=== PATIENT | male | born 1930 | race Caucasian/White ===

== ENCOUNTER → 2017-01-27 | Outpatient (CLI) | payer MEDICARE ==
[2017-01-27 08:58] LABS: % SAT IRON 18 % (15-34); IRON,SERUM 73 ug/dL (65-175)
[2017-01-27 09:13] LABS: ALBUMIN 4.3 g/dL (3.4-5.0); BASO % 1 % (0-3); CREATININE 2.3 mg/dL (0.7-1.3); EOS % 6 % (0-3); GFR 27.2; HEMATOCRIT 35.4 % (39.0-53.0); HEMOGLOBIN 12.7 g/dL (13.0-17.5); LYMPH # 0.9 x10^3/uL (1.0-4.8); LYMPH % 18 % (24-48); MAGNESIUM 1.8 mg/dL (1.8-2.4); MEAN CORPUSCULAR HEMOGLOBIN 32 pg (25-35); MEAN CORPUSCULAR HGB CONC 36 g/dL (31-37); MEAN CORPUSCULAR VOLUME 90 fL (79-100); MONO % 18 % (0-9); NEUT % 57 % (31-73); PHOSPHORUS 4.7 mg/dL (2.6-4.7); PLATELET COUNT 193 x10^3/uL (140-400); POTASSIUM 4.5 mmol/L (3.5-5.1); RED BLOOD COUNT 3.95 x10^6/uL (4.30-5.70); RED CELL DISTRIBUTION WIDTH 14.1 % (11.5-14.5); WHITE BLOOD COUNT 5.1 x10^3/uL (4.0-11.0)
[2017-01-27 11:51] LABS: % EOS 6 % (0-5); PLT ESTIMATE ADEQUATE (ADEQUATE)
[2017-01-27 17:18] LABS: UR PROTEIN RD 58.9 mg/dL (Not Estab.)
[2017-01-27 19:13] LABS: PTH INTACT 44 pg/mL (15-65)
== END | disposition home or self-care (01) ==
LOC: LAB 07:58
PROVIDERS: ATTEND Nurse Practitioner Family
DX: I12.9 Hypertensive chronic kidney disease with stage 1 through stage 4 chronic kidney disease, or unspecified chronic kidney disease (principal); N18.3 Chronic kidney disease, stage 3 (moderate); E11.21 Type 2 diabetes mellitus with diabetic nephropathy; D64.9 Anemia, unspecified; R80.9 Proteinuria, unspecified; Z68.26 Body mass index [BMI] 26.0-26.9, adult
CPT/HCPCS: 36415; 80069; 82043; 82570; 82728; 83540; 83550; 83735; 83970; 84156; 85007; 85027

== ENCOUNTER → 2017-02-26 | Outpatient (CLI) | payer BC ==
[2017-02-26 08:44] LABS: CREATININE 2.1 mg/dL (0.7-1.3); GFR 30.2; POTASSIUM 4.5 mmol/L (3.5-5.1)
== END | disposition home or self-care (01) ==
LOC: LAB 08:07
PROVIDERS: ATTEND Internal Medicine Nephrology
DX: N18.3 Chronic kidney disease, stage 3 (moderate) (principal); Z68.26 Body mass index [BMI] 26.0-26.9, adult
CPT/HCPCS: 36415; 82565; 84132; 84520

== ENCOUNTER → 2017-11-27 | Outpatient (CLI) | payer BC ==
[2017-11-27 08:05] LABS: HEMATOCRIT 37.3 % (39.0-53.0); HEMOGLOBIN 12.9 g/dL (13.0-17.5); MEAN CORPUSCULAR HGB CONC 35 g/dL (31-37)
[2017-11-27 08:25] LABS: % SAT IRON 20 % (15-34); IRON,SERUM 69 ug/dL (65-175)
[2017-11-27 08:40] LABS: ALBUMIN 3.8 g/dL (3.4-5.0); ANION GAP 7 (6-14); BLOOD UREA NITROGEN 48 mg/dL (8-26); CALCIUM 10.6 mg/dL (8.5-10.1); CARBON DIOXIDE 26 mmol/L (21-32); CHLORIDE 104 mmol/L (98-107); CREATININE 2.6 mg/dL (0.7-1.3); FERRITIN 328 ng/mL (26-388); GFR 23.5; GLUCOSE 108 mg/dL (70-99); PHOSPHORUS 4.6 mg/dL (2.6-4.7); POTASSIUM 4.6 mmol/L (3.5-5.1); SODIUM 137 mmol/L (136-145); URIC ACID 8.1 mg/dL (3.5-7.2)
[2017-11-27 11:45] LABS: BILIRUBIN,URINE NEGATIVE (NEG); CLARITY,URINE CLEAR; COLOR,URINE YELLOW; GLUCOSE,URINE NEGATIVE (NEG); NITRITE,URINE NEGATIVE (NEG); PH,URINE 6.5; PROTEIN,URINE 100 mg/dL (NEG-TRACE); UROBILINOGEN,URINE 0.2 mg/dL (0.2 mg/dL)
[2017-11-27 12:19] LABS: BACTERIA,URINE 0 /HPF (0-FEW); HYALINE CASTS, URINE FEW /HPF; RBC,URINE 0 /HPF (0-2); WBC,URINE 0 /HPF (0-4)
[2017-11-27 13:23] LABS: CALCIUM PTH 10.4 mg/dL (8.6-10.2); CREATININE PTH 2.28 mg/dL (0.76-1.27); PHOSPHORUS PTH 4.3 mg/dL (2.5-4.5); PTH INTACT 18 pg/mL (15-65); eGFR AFRICAN-AMER 29 (>59); eGFR NON AFRICAN-AMER 25 (>59)
[2017-11-28 11:13] LABS: TOTAL PROTEIN CREATININE RATIO 2213 mg/g creat (0-200); UR CREATININE RD 49.7 mg/dL (Not Estab.)
== END | disposition home or self-care (01) ==
LOC: LAB 07:30
DX: I12.9 Hypertensive chronic kidney disease with stage 1 through stage 4 chronic kidney disease, or unspecified chronic kidney disease (principal); N18.4 Chronic kidney disease, stage 4 (severe); E11.21 Type 2 diabetes mellitus with diabetic nephropathy; E11.22 Type 2 diabetes mellitus with diabetic chronic kidney disease; I70.1 Atherosclerosis of renal artery; D50.9 Iron deficiency anemia, unspecified; N27.0 Small kidney, unilateral; R80.9 Proteinuria, unspecified; Z68.26 Body mass index [BMI] 26.0-26.9, adult
CPT/HCPCS: 36415; 80069; 81001; 82570; 82728; 83540; 83550; 83735; 83970; 84156; 84550; 85014; 85018

== ENCOUNTER → 2018-03-02 | Outpatient (CLI) | payer BC ==
[2018-03-02 14:42] LABS: ADD MAN DIFF? NO
[2018-03-02 14:56] LABS: BASO # 0.1 x10^3/uL (0.0-0.2); BASO % 1 % (0-3); EOS # 0.5 x10^3/uL (0.0-0.7); EOS % 7 % (0-3); HEMATOCRIT 30.7 % (39.0-53.0); HEMOGLOBIN 10.8 g/dL (13.0-17.5); LYMPH # 0.6 x10^3/uL (1.0-4.8); LYMPH % 9 % (24-48); MEAN CORPUSCULAR HEMOGLOBIN 33 pg (25-35); MEAN CORPUSCULAR HGB CONC 35 g/dL (31-37); MEAN CORPUSCULAR VOLUME 92 fL (79-100); MONO # 0.8 x10^3/uL (0.0-1.1); MONO % 12 % (0-9); NEUT # 4.9 x10^3uL (1.8-7.7); NEUT % 71 % (31-73); PLATELET COUNT 227 x10^3/uL (140-400); RED BLOOD COUNT 3.33 x10^6/uL (4.30-5.70); RED CELL DISTRIBUTION WIDTH 13.5 % (11.5-14.5); WHITE BLOOD COUNT 6.9 x10^3/uL (4.0-11.0)
[2018-03-02 15:11] LABS: IRON,SERUM 91 ug/dL (65-175)
== END | disposition home or self-care (01) ==
LOC: LAB 14:26
DX: D64.9 Anemia, unspecified (principal); I12.9 Hypertensive chronic kidney disease with stage 1 through stage 4 chronic kidney disease, or unspecified chronic kidney disease; E11.21 Type 2 diabetes mellitus with diabetic nephropathy; N18.4 Chronic kidney disease, stage 4 (severe); E78.5 Hyperlipidemia, unspecified
CPT/HCPCS: 36415; 83540; 85025

== ENCOUNTER → 2019-01-04 | Outpatient (CLI) | payer BC ==
[2019-01-04 13:10] LABS: ALBUMIN 3.6 g/dL (3.4-5.0); CALCIUM 9.5 mg/dL (8.5-10.1); CREATININE 3.9 mg/dL (0.7-1.3); GFR 14.7; PHOSPHORUS 4.8 mg/dL (2.6-4.7)
== END | disposition home or self-care (01) ==
LOC: LAB 12:22
PROVIDERS: ATTEND Internal Medicine
DX: E11.22 Type 2 diabetes mellitus with diabetic chronic kidney disease (principal); I13.0 Hypertensive heart and chronic kidney disease with heart failure and stage 1 through stage 4 chronic kidney disease, or unspecified chronic kidney disease; N17.9 Acute kidney failure, unspecified; N18.4 Chronic kidney disease, stage 4 (severe); I50.9 Heart failure, unspecified
CPT/HCPCS: 36415; 80069

== ENCOUNTER → 2019-01-12 | Outpatient (CLI) | payer BC ==
[2019-01-12 13:29] LABS: ALBUMIN 3.6 g/dL (3.4-5.0); CALCIUM 9.2 mg/dL (8.5-10.1); CREATININE 3.3 mg/dL (0.7-1.3); GFR 17.8; PHOSPHORUS 4.5 mg/dL (2.6-4.7); POTASSIUM 4.6 mmol/L (3.5-5.1)
== END | disposition home or self-care (01) ==
LOC: LAB 12:57
PROVIDERS: ATTEND Internal Medicine Nephrology
DX: N17.9 Acute kidney failure, unspecified (principal)
CPT/HCPCS: 36415; 80069

== ENCOUNTER → 2019-01-20 | Outpatient (CLI) | payer BC ==
[2019-01-20 08:21] LABS: HEMATOCRIT 31.6 % (39.0-53.0)
[2019-01-20 08:50] LABS: BILIRUBIN,URINE NEGATIVE (NEG); CLARITY,URINE CLEAR; COLOR,URINE YELLOW; NITRITE,URINE NEGATIVE (NEG); PROTEIN,URINE 30 mg/dL (NEG-TRACE); UROBILINOGEN,URINE 0.2 mg/dL (0.2 mg/dL)
[2019-01-20 08:53] LABS: ALBUMIN 3.8 g/dL (3.4-5.0); CALCIUM 9.1 mg/dL (8.5-10.1); GFR 19.9; MAGNESIUM 2.3 mg/dL (1.8-2.4); PHOSPHORUS 4.3 mg/dL (2.6-4.7); POTASSIUM 4.7 mmol/L (3.5-5.1)
[2019-01-20 08:58] LABS: CREATININE,RANDOM URINE 16.4 mg/dL (Not Establ.)
[2019-01-20 09:25] LABS: BACTERIA,URINE 0 /HPF (0-FEW); RBC,URINE 0 /HPF (0-2); SQUAMOUS EPITHELIAL CELL,UR OCC /LPF; WBC,URINE OCC /HPF (0-4)
[2019-01-20 22:09] LABS: CREAT RD UR 18.6 mg/dL (Not Estab.); MICRO CREAT RATIO 1246.2 mg/g creat (0.0-30.0); MICROALB RD UR 231.8 ug/mL (Not Estab.)
[2019-01-21 00:10] LABS: CALCIUM PTH 9.7 mg/dL (8.6-10.2); CREATININE PTH 2.82 mg/dL (0.76-1.27); PHOSPHORUS PTH 4.2 mg/dL (2.5-4.5); PTH INTACT 51 pg/mL (15-65)
== END | disposition home or self-care (01) ==
LOC: LAB 07:26
PROVIDERS: ATTEND Nurse Practitioner Family
DX: I13.2 Hypertensive heart and chronic kidney disease with heart failure and with stage 5 chronic kidney disease, or end stage renal disease (principal); E11.22 Type 2 diabetes mellitus with diabetic chronic kidney disease; N18.4 Chronic kidney disease, stage 4 (severe); E11.21 Type 2 diabetes mellitus with diabetic nephropathy; E79.0 Hyperuricemia without signs of inflammatory arthritis and tophaceous disease; E83.52 Hypercalcemia; I15.0 Renovascular hypertension; I70.1 Atherosclerosis of renal artery; D50.9 Iron deficiency anemia, unspecified; N27.0 Small kidney, unilateral; K59.03 Drug induced constipation; R12 Heartburn; Z68.26 Body mass index [BMI] 26.0-26.9, adult
CPT/HCPCS: 36415; 80069; 81001; 82043; 82570; 82728; 83540; 83550; 83735; 83970; 84156; 84550; 85014; 85018

== ENCOUNTER → 2021-01-17 | Outpatient (CLI) | payer BC ==
[2021-01-18 01:30] LABS: HEMOGLOBIN A1C 6.2 % (4.8-5.6)
== END ==
LOC: LAB 07:33
PROVIDERS: ATTEND Family Medicine
DX: E11.37X1 Type 2 diabetes mellitus with diabetic macular edema, resolved following treatment, right eye (principal); E03.9 Hypothyroidism, unspecified
CPT/HCPCS: 36415; 83036; 84443